=== PATIENT | female | born 1995 | race Caucasian/White ===

== ENCOUNTER 2024-10-21 03:52 | Emergency (ER) | payer SELFPAY ==
[~2024-10-21] VITALS: Ht 157.5 cm; Wt 54.5 kg
[2024-10-21 04:33] VITALS: BP 128/86; TEMP 97.6; O2SAT 100
== END 2024-10-21 05:10 | disposition left against medical advice (07) ==
LOC: M ED 03:52 → EDBD 03:52 → M ED 05:10
DX: Z53.21 Procedure and treatment not carried out due to patient leaving prior to being seen by health care provider (principal)

== ENCOUNTER 2025-06-14 05:41 | Emergency (ER) | payer SELFPAY ==
[~2025-06-14] VITALS: Ht 157.5 cm; Wt 62.4 kg
[2025-06-14 05:58] VITALS: BP 115/75; TEMP 97.4; O2SAT 99
== END 2025-06-14 11:55 | disposition left against medical advice (07) ==
LOC: M ED 10:11
DX: Z53.21 Procedure and treatment not carried out due to patient leaving prior to being seen by health care provider (principal)